=== PATIENT | female | born 1990 | race Caucasian/White ===

== ENCOUNTER 2016-10-29 21:46 | Emergency (ER) | payer SELFPAY ==
[2016-10-29] MEDS ORDERED: DIPH,PERTUSS,TET(ADACEL) VAC/PF 0.5 ML (Tdap) IM ONE (21:51)
[2016-10-29 22:04] VITALS: RESP 16; TEMP 99.1
--- NOTE | 2016-10-29 22:22 | PDOC ---
Animal Bite HPI - General Chief Complaint: Animal Bite Stated Complaint: Dog bite to right calf Date Seen by Provider: 10/29/16 Time Seen by Provider: 21:55 Source: POSITIVE: Patient Exam Limitations: POSITIVE: No limitations Nurse's Notes Reviewed & Considered: Yes - History of Present Illness Initial Comments: The patient is a 25-year-old female who is evaluated with a dog bite to her right calf. She states that she is dog sitting in the dog that she is watching got into a fight with her own dog. During the process of breaking up the fight she was bitten on the right calf. The incident occurred in [place] and law enforcement was on seen. Both dogs were immunized for rabies. The patient is not up-to-date on her tetanus. She does have some mild scratches and jammed her little finger during the incident as well however denies any other associated injuries or complaints. Have you received a tetanus shot in the past 10 years?: Unknown - Patient Home Medications Home Medications: Home Medications Amox Tr/Potassium Clavulanate [Augmentin 875-125 Tablet] 1 each PO BID #14 tablet 10/29/16 - Patient Allergies Allergies/Adverse Reactions: Allergies Allergy/AdvReac Type Severity Reaction Status Date / Time shellfish derived Allergy Intermediate hives Verified 10/29/16 21:48 acetaminophen [From Tylenol] Allergy hives Verified 10/29/16 21:48 Past Medical History - heen HEENT History: Denies History Cardiovascular History: Denies History Respiratory History: Denies History Gastrointestinal History: Denies History Genitourinary History: Denies History Endocrine History: Denies History Musculoskeletal History: Denies History Prosthesis or Implant: No Neurological History: Denies History Blood Disorders: Denies History Psychiatric History: Denies History Cancer History: Denies History In Past Year Been Physically Harmed or Verbally Threatened: No History of MDRO: No Tobacco Use: Never Smoker Alcohol Use: None Substance Use Type: None Previous Surgical History: No Significant Family History: No pertinent family hx Past Medical History Reviewed: Reviewed - No Changes ROS - Limitations ROS Limitations: No Limitations (Review of systems otherwise noncontributory) Animal Bite Physical Exam - General Appearance General Appearance: REPORTS: Alert, Cooperative, No Acute Distress - HEENT HEENT: POSITIVE: Head Inspection Nml (No visible trauma) - Neck Neck: POSITIVE: Normal Inspection - Respiratory Respiratory: POSITIVE: No Respiratory Distress, Breath Sounds Normal - Cardiovascular Cardiovascular: POSITIVE: Regular Rate and Rhythm, Heart Sounds Normal - Extremities Additional Extremities Details: Examination of the right calf reveals a superficial laceration associated with a puncture medially and a puncture laterally consistent with a dog biting her calf, there is no active bleeding, good resells pedis pulse in the right foot, she does have some minor abrasions to both knees, the left little finger has some mild swelling and bruising and a superficial abrasion. - Neuro/Vascular/Tendon Neuro/Vascular/Tendon: POSITIVE: Other (No focal neurologic deficits) Animal Bite Progress - Results Reviewed by me Xrays/CTs/US Reviewed by me: Yes Radiology Findings: X-ray right tib-fib reveals no fracture, no visible foreign body. - Patient's Progress MDM / ED Course: An x-ray was obtained of the right calf to rule out foreign body, this was normal. The patient was started on Augmentin 875 mg twice a day for 7 days. The wound on her leg was cleaned and a dressing applied, both puncture wounds were left open. She will continue warm soaks 2-3 times a day. She can take ibuprofen as needed for pain. Return to the emergency room if increased pain or swelling, fevers or chills, any worsening or other sign of infection. Follow -up with primary care in 3-5 days. - Consult Counseled: POSITIVE: Patient, RE: Radiology Results, RE: DX, RE: Need for F/U Patient Care Time - Estimated PCT Patient Care Time (In Minutes): 15 Vital Signs - Recent Vital Signs Vital Signs: Vital Signs (Last 8 hours) Temp Pulse Resp BP Pulse Ox 10/29/16 21:50 99.1 F 94 16 118/84 97 - VS Reviewed Vital Signs Reviewed: Yes Discharge Clinical Impression: Dog bite Discharge Disposition: Discharged to Home Condition: Stable Prescriptions / Orders: Amox Tr/Potassium Clavulanate [Augmentin 875-125 Tablet] 1 each PO BID #14 tablet Patient Instructions Given at Discharge: Animal Bite (ED) Additional Instructions: The puncture wounds from the bite on the right calf for left open secondary to the risk of infection. You have been started on Augmentin which is an antibiotic which she should take 875 mg twice a day for 7 days. You can take ibuprofen 4-600 mg every 6 hours as needed for pain. Recommend warm soaks 2-3 times a day. Return to the emergency room if increased pain or swelling, fevers or chills, any worsening or change in symptoms. Follow-up with primary care in 3-5 days. Follow Up With: NONE,NONE [Primary Care Provider] -
[2016-10-29] MEDS ORDERED: Amoxicill/Clav 875/125mg Tab 1 TAB TAB PO SCH (22:30)
--- NOTE | 2016-11-01 00:59 | DI ---
XR TIB/FIB 2VW,10/29/2016 9:51 PM: Clinical History: Dogbite Previous Exam: None at this facility. Findings: AP and lateral views of the right tibia and fibula are obtained, and demonstrate anatomic alignment w ithout fractures. There is no subcutaneous free air. There is no radiopaque foreign body. Impression: Normal right tibia and fibula.
== END 2016-10-29 22:30 | disposition home or self-care (01) ==
LOC: ER 21:46
DX: S81.852A Open bite, left lower leg, initial encounter (principal); W54.0XXA Bitten by dog, initial encounter
CPT/HCPCS: 73590; 90471; 99282